=== PATIENT | female | born 1975 | race Caucasian/White ===

== ENCOUNTER 2023-04-07 11:57 | Outpatient (CLI) | payer BC, SELFPAY ==
--- NOTE | 2023-04-07 13:46 | W.ANESCHARGE ---
Anesthesia Charges Start Date/Time Anesthesia Start Date: 04/07/23 Anesthesia Start Time: 13:20 Stop Date/Time Anesthesia Stop Date: 04/07/23 Anesthesia Stop Time: 13:45
== END 2023-04-07 11:58 | disposition home or self-care (01) ==
LOC: OP CLINIC 11:58
PROVIDERS: PCP Student in an Organized Health Care Education/Training Program; Visit Provider Internal Medicine Gastroenterology
DX: Z12.11 Encounter for screening for malignant neoplasm of colon (principal)
CPT/HCPCS: 00812; 45378; J2704

== ENCOUNTER 2024-06-15 10:41 | Emergency (ER) | payer BC, SELFPAY ==
[2024-06-15] VITALS (10 sets, daily range): BP systolic 112–118; BP diastolic 80–89; PULSE 74–88; RESP 18; TEMP 21.1–36.2; O2SAT 92–96; BMI 35.0
--- NOTE | 2024-06-15 11:03 | ED_ITS ---
HPI - General Adult General Date Seen: 06/15/24 Chief complaint: Abdominal Pain Stated complaint: abdominal pain/bloating Time Seen by Provider: 06/15/24 11:03 History of Present Illness HPI narrative: 48 yo female with a previous history of hysterectomy, cholecystectomy, GERD (on Prilosec) but otherwise healthy presenting to the ER today with a 5 day history of epigastric and periodontal pain, discomfort, and bloating. Symptoms began Friday evening at a been present ever since then. She has been having a sensation of bloating and increased girth of her abdomen. She has had waves of pain that seem to come and go. At times the pain is fairly mild and at times it is fairly severe and makes her cry. It feels like a bloating and cramping. No clear pattern to the pain. Not related to position or feeding. She does note that she has had a decreased appetite and does feel more bloated whenever she swallows anything, even water. She had been having normal bowel movements up until symptoms began on Friday. No BM on Friday or Friday. She started having 5 episodes of watery diarrhea on Friday. She had 1 more episode of watery diarrhea yesterday and Friday. No stool since then. No fever or chills or body aches or other infection symptoms. Poor appetite but no nausea or vomiting. She she tried to call her primary clinic but was referred to the ER for evaluation of her abdominal pain. Related Data Previous Rx's ?Medication ?Instructions ?Recorded diphenoxylate-atropine 2.5 1 tab PO Q6-8H PRN diarrhea #7 tabs 06/15/24 mg-0.025 mg tablet (Lomotil) hydrocodone 5 mg-acetaminophen 325 1 tab PO Q4-6H PRN pain #7 tabs 06/15/24 mg tablet ondansetron HCl 4 mg tablet 4 mg PO Q8H #7 tabs 06/15/24 Allergies Allergy/AdvReac Type Severity Reaction Status Date / Time IV contrast Allergy Intermediate Hives Uncoded 06/15/24 11:36 topmax Allergy Intermediate Uncoded 06/15/24 11:36 [facility] Medical History (Updated 06/15/24 @ 16:15 by Josh Barriga MD) Large fiber neuropathy ?G62.9 - Polyneuropathy, unspecified (ICD-10) Social History Smoking Status: Never smoker How often do you have a drink containing alcohol: never AUDIT-C Alcohol total score: 0 Non-prescribed substance use: denies use service: No Exam Narrative: Exam Narrative: Constitutional: Appears well-developed and well-nourished. Alert. Conversant. Non toxic. Politely declines pain meds. HENT: Head: Atraumatic. Nose: Nose normal. Mouth/Throat: Oral mucosa is clear and moist. no trismus. Pharynx normal. Eyes: Conjunctivae normal. EOM normal. Pupils equal, round, and reactive to light. No scleral icterus. Neck: Normal range of motion. Neck supple. No tracheal deviation present. Cardiovascular: Normal rate, regular rhythm. No gallop. No friction rub. No murmur heard. Symmetric radial artery pulses Pulmonary/Chest: Effort normal. No stridor. No respiratory distress. No wheezes. No rales. No rhonchi . Abdominal: Soft. Bowel sounds normal. Moderate distension but not tympanic. No mass. Epigastric and periumbilical tenderness. No rebound. No guarding. No CVA tenderness Musculoskeletal: RUE: Normal range of motion. No tenderness. No deformity LUE: Normal range of motion. No tenderness. No deformity RLE: Normal range of motion. No edema. No tenderness. No deformity LLE: Normal range of motion. No edema. No tenderness. No deformity Neurological: Alert and oriented to person, place, and time. Normal strength. CN II-VII intact. No sensory deficit. GCS eye subscore is 4. GCS verbal subscore is 5. GCS motor subscore is 6. Normal coordination Skin: Skin is warm and dry. No rash noted. No pallor. Normal capillary refill. Psychiatric: Normal mood. Normal affect. Const: Vital Signs, click to edit/add: Vital Signs - 24 hr 06/15/24 10:54 06/15/24 11:00 06/15/24 11:07 Temperature 96.9 F L 69.9 F L Pulse Rate 82 Pulse Rate [Right Radial] 81 81 Respiratory Rate 18 18 18 Blood Pressure 114/89 Blood Pressure [Le ft Upper Arm] 114/89 114/89 Pulse Oximetry 94 94 94 Oxygen Delivery Me thod Room Air Room Air Room Air 06/15/24 11:30 06/15/24 12:00 06/15/24 12:30 Temperature 96.9 F L 97.2 F L Pulse Rate Pulse Rate [Right Radial] 79 88 74 Respiratory Rate 18 18 18 Blood Pressure Blood Pressure [Le ft Upper Arm] 113/86 117/87 118/84 Pulse Oximetry 95 95 92 Oxygen Delivery Me thod Room Air Room Air Room Air 06/15/24 13:30 06/15/24 14:32 06/15/24 16:00 Temperature Pulse Rate 80 81 87 Pulse Rate [Right Radial] Respiratory Rate 18 18 18 Blood Pressure 118/87 112/80 117/83 Blood Pressure [Le ft Upper Arm] Pulse Oximetry 93 93 96 Oxygen Delivery Me thod Room Air Room Air Room Air Course Course ED Course: Recheck-still having some pain but still politely declines any pain meds. Otherwise stable. Recheck-discussed test results. She is Comfortable discharging to home. Vital Signs Vital signs: Initial Vital Signs Temperature 96.9 F L 06/15/24 10:54 Temperature Source Temporal Artery Scan 06/15/24 10:54 Pulse Rate 81 06/15/24 10:54 Pulse Rhythm Regular 06/15/24 10:54 Pulse Strength 3+ Normal 06/15/24 10:54 Respiratory Rate 18 06/15/24 10:54 Blood Pressure 114/89 06/15/24 10:54 Blood Pressure Mean 97 06/15/24 10:54 Blood Pressure Position Supine 06/15/24 10:54 Pulse Oximetry 94 06/15/24 10:54 Oxygen Delivery Method Room Air 06/15/24 10:54 Vital Signs Temperature 96.9 F L 06/15/24 10:54 Pulse Rate 81 06/15/24 10:54 Respiratory Rate 18 06/15/24 10:54 Blood Pressure 114/89 06/15/24 10:54 Pulse Oximetry 94 06/15/24 10:54 Oxygen Delivery Method Room Air 06/15/24 10:54 Temperature 97.2 F L 06/15/24 12:30 Pulse Rate 87 06/15/24 16:00 Respiratory Rate 18 06/15/24 16:00 Blood Pressure 117/83 06/15/24 16:00 Pulse Oximetry 96 06/15/24 16:00 Oxygen Delivery Method Room Air 06/15/24 16:00 Medications Administered Medications: Discontinued Medications Generic Name Dose Route Start Last Admin Trade Name Freq PRN Reason Stop Dose Admin Diphenhydramine HCl 50 mg 06/15/24 12:18 06/15/24 12:43 Diphenhydramine 50 Mg/Ml Inj IVP 06/15/24 12:19 50 mg ONCE ONE Administration Hydrocortisone Sodium Succinate 200 mg 06/15/24 12:18 06/15/24 12:43 Hydrocortisone Sod Succinate 50 Mg/Ml Inj IVP 06/15/24 12:19 200 mg ONCE ONE Administration Medical Decision Making MDM Narrative Medical decision making narrative: Presented to the Emergency Department with a 5 day history of periumbilical and generalized abdominal pain, associated with diarrhea 2 days ago, ending yesterday morning. The differential diagnosis of abdominal pain includes: Bowel Obstruction, Appendicitis, Ulcer, Ischemia, Diverticulitis, Pancreatitis, UTI, kidney stone, Enteritis/Colitis, amongst many other etiologies. Laboratory testing is reassuring and does not reveal a cause for the patient's pain. After premedication to prevent allergy, CT abdomen/pelvis with contrast is obtained and shows evidence for some fluid in the colon and possible mild colitis. The patient's symptoms and exam could be consistent with a viral GI infection causing her colitis and symptoms. There is no high fever, severe pain, bilious or bloody emesis, blood or mucous in the stool, severe abdominal pain, or other concerning signs for a bacterial infection, but bacterial enteritis remains on the differential for colitis.. No recent travel or high risk exposure for baceraial pathogen. No recent antibiotics or risk factors for C. diff. nonetheless will order stool culture and C diff to check. If patient has symptoms are not improving may need outpatient follow-up for colonoscopy to screen for autoimmune colitis. I don't see any evidence for appendicitis, bowel obstruction, abscess, bowel perforation, or other surgical emergency. Labs show no concerning electrolyte disturbance or renal failure[]. After meds given the patient is feeling better. At this point, the patient is non-septic appearing and well hydrated.I think the patient can be managed as an outpatient. We have discussed oral rehydration strategies. They understand and can perform the needed interventions at home. I have provided a prescription for antiemetics to facilitate oral hydration Zofran. Also try Lomotil to help with crampy pain. Prescription for his [place] also provided for symptomatic relief. Opiate precautions reviewed. No life threatening cause or need for emergent surgery or hospital admission is detected today. The patient was advised that if symptoms do not completely resolve within another 24-48 hours re-evaluation with primary care or return to the ED is indicated. The patient also understands that if they worsen, they should return to the ER right away. I discussed the uncertainty about the diagnosis and answered the patient's questions. Abdominal pain return precautions discussed.[] Lab Data Labs: Lab Results 06/15/24 06/15/24 Range/Units 11:25 11:45 WBC 6.92 (4.50-11.00) K/uL RBC 4.92 (4.00-5.20) m/uL Hgb 14.4 (12.0-16.0) gm/dL Hct 43.1 (33.0-51.0) % MCV 88 (80-100) fL MCH 29 (26-34) pg MCHC 33 (32-36) gm/dL RDW Coeff of [place] 13.3 (11.5-15.5) % Plt Count 274 (140-440) K/uL Neut % (Auto) 51.7 (42.0-72.0) % Lymph % (Auto) 37.3 (20-44) % [place] % (Auto) 7.1 (0.0-11.0) % Eos % (Auto) 2.9 (0.0-7.0) % Baso % (Auto) 0.3 (0.0-3.0) % Neut # (Auto) 3.58 (1.7-7.0) K/uL Lymph # (Auto) 2.58 (0.90-2.90) K/uL [place] # (Auto) 0.50 (0.00-0.90) K/UL Eos # (Auto) 0.20 (0.00-0.50) K/uL Baso # (Auto) 0.02 (0.00-0.30) K/uL Abs Immat Gran (auto) 0.05 (0.00-0.30) K/uL Imm/Tot Granulo (auto) 0.7 % Sodium 138 (135-149) mmol/L Potassium 4.5 (3.6-5.1) mmol/L Chloride 107 (96-114) mmol/L Carbon Dioxide 26 (20-32) mmol/L Anion Gap 5 L (7-15) mEq/L BUN 11 (7-30) mg/dL Creatinine 0.6 (0.5-1.5) mg/dL Estimated Creat Clear 84.65 Estimated GFR 109 ml/min Glucose 103 (60-115) mg/dL Calcium 9.0 (8.4-10.6) mg/dL Total Bilirubin 0.6 (0.1-1.5) mg/dL AST 59 H (12-35) U/L ALT 60 H (4-35) U/L Alkaline Phosphatase 92 (40-150) U/L Total Protein 7.5 (6.0-8.3) g/dL Albumin 4.4 (3.3-5.0) g/dL Lipase 45 (23-300) U/L Urine Color Yellow (Yellow) Urine Appearance Clear (Clear) Urine pH 5.5 (5.0-8.5) Ur Specific [place] 1.025 (1.000-1.030) Urine Protein Trace A (Negative) Urine Glucose (UA) Negative (Negative) Urine Ketones Negative (Negative) Urine Blood Negative (Negative) Urine Nitrite Negative (Negative) Urine Bilirubin Negative (Negative) Urine Urobilinogen 0.2 (0.2-1.0) Ur Leukocyte Esterase Trace A (Negative) Urine RBC 0-2 (0-2) Urine WBC 0-2 (0-5) Ur Squamous Epith Cells Few (None-Few) Urine Bacteria None (None) Imaging Data CT scan - abdomen: Attestation: I have reviewed the pertinent imaging results. Radiologist's impression: IMPRESSION: Some fluid in the proximal colon which can be seen with diarrheal illness/low-grade colitis. Otherwise, no acute intra-abdominal/pelvic abnormality. Discharge Plan Discharge Clinical Impression: Abdominal pain, Diarrhea, Colitis Patient Disposition: Home, Self-Care Condition: Stable Instructions: Acute Diarrhea (ED), Colitis (ED) Additional Instructions: As we discussed, so for your workup looks reassuring. However you may have a condition called ?colitis. ?. If you have more diarrhea I would like he did collect a sample at home and bring it back to the [facility] lab for further analysis (to look for infections.). If you are not completely improved within the next 24-48 hours, please recheck with your doctor or come back to the ER for a recheck. If you have worsening symptoms such as worsening or uncontrolled pain, fever, bloody stool or bloody vomit, or any other problems, please come back to the ER right away. Use the prescription medication (Lomotil) if needed for cramping or use the prescription pain killer ([place]) if needed. Use caution with [place] because it does cause side effects like drowsiness, dizziness, constipation, and [place] can be addictive. Prescriptions: New diphenoxylate-atropine [Lomotil] 2.5-0.025 mg tablet 1 tab PO Q6-8H PRN (Reason: diarrhea) Qty: 7 0RF hydrocodone-acetaminophen 5-325 mg tablet 1 tab PO Q4-6H PRN (Reason: pain) Qty: 7 0RF ondansetron HCl 4 mg tablet 4 mg PO Q8H Qty: 7 0RF Follow Up/Referrals: AMBERLY HERNANDEZ DO [Primary Care Provider] - Stand Alone Forms: [employer] Info Instructions
--- NOTE | 2024-06-15 11:24 | CRLHL7_ITS ---
For Patients: As a result of the Century Cures Act, medical imaging exams and procedure reports are released immediately into your electronic medical record. You may view this report before your referring provider. If you have questions, please contact your health care provider. INDICATION: Abdominal bloating/epigastric pain/diarrhea. TECHNIQUE: CT abdomen and pelvis acquired with 100 cc Omnipaque 350 IV contrast. COMPARISON: June 10, 2012. FINDINGS: Lower chest: Scattered atelectasis. Liver: Mild decreased hepatic attenuation, possibly steatosis. No suspicious masses. Gallbladder and bile ducts: Cholecystectomy. Pancreas: Unremarkable. No mass or inflammation. Spleen: Unremarkable. Normal in size. No masses. Adrenal glands: Unremarkable. No nodules. Kidneys: Incidental 10 millimeter nonobstructing right renal stone. No suspicious masses, or hydronephrosis. GI tract: Fluid in the proximal colon. Normal in caliber. No sign of mass or inflammation. Appendix not seen, however no right lower quadrant inflammatory stranding. Vasculature: Abdominal aorta is normal in caliber. Mesenteric arteries are patent. Lymph nodes: No lymphadenopathy. Peritoneum/Abdominal Wall: Unremarkable. No sign of mass or infiltration. No free air or significant free fluid. Pelvis: Hysterectomy. Bones: Unremarkable for age. IMPRESSION: Some fluid in the proximal colon which can be seen with diarrheal illness/low-grade colitis. Otherwise, no acute intra-abdominal/pelvic abnormality. Please note that all CT scans at this facility use dose modulation, iterative reconstruction, and/or weight-based dosing when appropriate to reduce radiation dose to as low as reasonably achievable. Dictated by Gianluca Acosta MD @ 06/15/2024 2:42:14 PM (Electronically Signed)
[2024-06-15 11:58] LABS: Basophils Absolute Auto 0.02 K/uL (0.00-0.30); Basophils Percent Auto 0.3 % (0.0-3.0); Eosinophils Percent Auto 2.9 % (0.0-7.0); Hematocrit 43.1 % (33.0-51.0); Hemoglobin* 14.4 gm/dL (12.0-16.0); Immature Granulocytes Abs Auto 0.05 K/uL (0.00-0.30); Immature Granulocytes Pct Auto 0.7 %; Lymphocytes Absolute Auto 2.58 K/uL (0.90-2.90); Lymphocytes Percent Auto 37.3 % (20-44); Mean Corpuscular HGB Conc 33 gm/dL (32-36); Mean Corpuscular Hemoglobin 29 pg (26-34); Mean Corpuscular Volume 88 fL (80-100); Monocytes Percent Auto 7.1 % (0.0-11.0); Neutrophils Absolute Auto 3.58 K/uL (1.7-7.0); Neutrophils Percent Auto 51.7 % (42.0-72.0); Platelet Count* 274 K/uL (140-440); RDW Coefficient of Variation % 13.3 % (11.5-15.5); Red Blood Count 4.92 m/uL (4.00-5.20); White Blood Count* 6.92 K/uL (4.50-11.00)
[2024-06-15 12:00] LABS: Slide Review Reflex No
[2024-06-15 12:06] LABS: Albumin* 4.4 g/dL (3.3-5.0); Chloride* 107 mmol/L (96-114)
[2024-06-15 12:07] LABS: Potassium* 4.5 mmol/L (3.6-5.1); Sodium* 138 mmol/L (135-149)
[2024-06-15 12:09] LABS: Alkaline Phosphatase* 92 U/L (40-150); Anion Gap 5 mEq/L (7-15); Aspartate Amino Transferase* 59 U/L (12-35); Bilirubin Total* 0.6 mg/dL (0.1-1.5); Blood Urea Nitrogen* 11 mg/dL (7-30); Carbon Dioxide* 26 mmol/L (20-32); Creatinine* 0.6 mg/dL (0.5-1.5); Est. Creatinine Clearance* 84.65; Estimated Glomerular Filt Rate 109 ml/min; Glucose* 103 mg/dL (60-115); Total Protein* 7.5 g/dL (6.0-8.3)
[2024-06-15 12:10] LABS: Alanine Aminotransferase* 60 U/L (4-35)
[2024-06-15 12:13] LABS: Lipase* 45 U/L (23-300)
[2024-06-15] MEDS: HYDROCORTISONE SOD SUCCINATE 50 MG/ML inj 200 MG IVP (12:43)
[2024-06-15] MEDS: diphenhydrAMINE 50 MG/ML inj IVP (12:43)
[2024-06-15 14:19] LABS: Appearance Urine Clear (Clear); Bilirubin Urine Negative (Negative); Blood Urine Negative (Negative); Color Urine Yellow (Yellow); Glucose Urine Negative (Negative); Ketones Urine Negative (Negative); Leukocyte Esterase Urine Trace (Negative); Nitrite Urine Negative (Negative); Protein Urine Trace (Negative); Specific Gravity Urine 1.025 (1.000-1.030); Urobilinogen Urine 0.2 (0.2-1.0); pH Urine 5.5 (5.0-8.5)
[2024-06-15 14:38] LABS: RBC Urine 0-2 (0-2); Squamous Epithelial Cell Urine Few (None-Few); WBC Urine 0-2 (0-5)
[2024-06-16 12:45] LABS: C.Difficile Negative (Negative); CDIFFEPI 027 PRESUMPTIVE NEGATIVE (Negative)
== END 2024-06-15 16:43 | disposition home or self-care (01) ==
PROVIDERS: Emergency Provider Emergency Medicine; PCP Student in an Organized Health Care Education/Training Program
DX: K52.9 Noninfective gastroenteritis and colitis, unspecified (principal)
CPT/HCPCS: 36415; 74177; 80053; 81001; 83690; 85025; 87045; 87046; 87086; 87427; 87493; 96374; 96375; 99283; 99284; J1200; J1720; Q9967